=== PATIENT | female | born 1990 | race Caucasian/White ===

== ENCOUNTER 2022-01-24 11:14 | Emergency (ER) | payer OTHER, SELFPAY ==
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
[2022-01-24 11:25] VITALS: BP 126/92; PULSE 84; RESP 16; TEMP 36.6; O2SAT 98
[2022-01-24] MEDS: KETOROLAC (*BKC) 60 MG/2 ML VIAL IM (11:54)
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
[2022-01-24 12:24] VITALS: BP 118/78; PULSE 71; RESP 16; O2SAT 99
== END 2022-01-24 12:27 | disposition home or self-care (01) ==
PROVIDERS: Emergency Provider Emergency Medicine
DX: S13.4XXA Sprain of ligaments of cervical spine, initial encounter (principal); V43.52XA Car driver injured in collision with other type car in traffic accident, initial encounter
CPT/HCPCS: 70450; 72125; 96372; 99284; J1885; L0150

== ENCOUNTER 2024-06-09 11:20 | Emergency (ER) | payer OTHER, SELFPAY ==
[2024-06-09 11:20] VITALS: BP 150/110; PULSE 80; RESP 16; TEMP 36.5; O2SAT 100
--- NOTE | 2024-06-09 11:31 | ED.HA ---
HPI - Headache General Chief Complaint: Headache Stated Complaint: migraine Time Seen by Provider: 06/09/24 11:26 Source: patient Mode of arrival: ambulatory Limitations: no limitations History of Present Illness HPI Narrative: 34-year-old female with a history of migraines presents to the ED with a 2 day history of -- upper neck pain radiating forwards to the frontal region of the head along with left retro-orbital pain. The pain was initially intermittent but now it is persistent. Patient had some nausea and vomiting. Patient has photophobia. The headache started gradually. This is similar to her usual migraine headache. No fever. The patient did not experience any aura. No recent trauma. Patient is not on any control pills nor is she . MD elicited complaint: headache and migraine Onset (ago): day(s) ( Two days) Onset description: gradually Location: left, frontal and occipital Severity: moderate Quality & Timing: aching and throbbing Exacerbating factors: none Relieving factors: nothing Context: occurred at rest Associated symptoms: nausea, vomiting and photophobia Treatments prior to arrival: none Related Data Home Medications Medication Instructions Recorded Confirmed cyclobenzaprine 10 mg tablet 10 mg PO TID PRN Muscle Spasm 06/09/24 06/09/24 Allergies Allergy/AdvReac Type Severity Reaction Status Date / Time No Known Allergies Allergy Verified 06/09/24 11:35 Review of Systems Review of Systems: All systems reviewed & are unremarkable except as noted in HPI and below Constitutional: Constitutional: Reports as per HPI and Reports no additional constitutional complaints Eyes: Eyes: Reports as per HPI and Reports no additional eye complaints ENT: Reports system reviewed and no additional complaints, except as documented and Reports as per HPI Cardiovascular: Cardiovascular: Reports as per HPI and Reports no additional cardiovascular complaints Respiratory: Respiratory: Reports as per HPI and Reports no additional respiratory complaints Gastrointestinal: Gastrointestinal: Reports as per HPI and Reports no additional gastrointestinal complaints Genitourinary: Genitourinary: Reports no additional female genitourinary complaints and Reports as per HPI Musculoskeletal: Musculoskeletal: Reports no additional musculoskeletal complaints and Reports as per HPI Integumentary/Breasts: Skin/Breast: Reports system reviewed and no additional complaints, except as docu and Reports as per HPI Neurologic: Reports system reviewed and no additional complaints, except as documented, Reports as per HPI and Reports headache(s) Psychiatric: Psychiatric: Reports no additional psychiatric complaints and Reports as per HPI Endocrine: Endocrine: Reports no additional endocrine complaints and Reports as per HPI Hematologic/Lymphatic: Hematologic/Lymphatic: Reports no additional hematologic/lymphatic complaints and Reports as per HPI Allergic/Immunologic: Allergic/Immunologic: Reports no additional allergic/immunologic complaints and Reports as per HPI PMFSH Past Medical History Medical History Migraine Patient denies medical problems Family History Family History Mother Hypertension Cerebrovascular accident Family history of diabetes mellitus in first degree relative Father Cerebrovascular accident, Onset Age: 46 Social History Social History Smoking status: Never smoker Alcohol intake: never Exam Narrative: pressure is 150/110. Const: General: no acute distress Orientation/consciousness: patient oriented x3 Limitations: no limitations HENMT: Head: normal to inspection Ears: external ears normal Face/Nose/Sinus: Normal external nose present Face and sinus: normal facial exam Mouth: Yes Normal oral and pal
[2024-06-09] MEDS: ONDANSETRON HCL ODT 4 MG TABLET PO (11:40)
[2024-06-09] MEDS: KETOROLAC 30 MG/ML VIAL (*BKC) IM (11:41)
[2024-06-09 11:54] VITALS: BP 142/118
--- NOTE | 2024-06-09 12:13 | PC.NURSE ---
PT REPORTS NAUSEA HAS IMPROVED, PAIN IS ABOUT THE SAME, HOWEVER SHE WOULD LIKE TO GO HOME TO REST. STEADY GAIT IS NOTED.
== END 2024-06-09 12:12 | disposition home or self-care (01) ==
PROVIDERS: Emergency Provider Internal Medicine Critical Care Medicine
DX: G43.909 Migraine, unspecified, not intractable, without status migrainosus (principal); Z79.899 Other long term (current) drug therapy
CPT/HCPCS: 96372; 99283; A9270; J1885

== ENCOUNTER 2024-08-09 08:03 | Emergency (ER) | payer OTHER, SELFPAY ==
[2024-08-09 08:03] VITALS: BP 153/116; PULSE 80; RESP 18; TEMP 36.4; O2SAT 99
[2024-08-09 08:16] VITALS: BP 144/102; PULSE 78; O2SAT 98
--- NOTE | 2024-08-09 08:17 | ED_ITS ---
HPI - Headache General Chief Complaint: Headache Stated Complaint: migraine Time Seen by Provider: 08/09/24 08:17 Source: patient Mode of arrival: ambulatory History of Present Illness HPI Narrative: 34 years old white female came to the ED with migraine headache started last night, similar to her previous migraine, vomited once last night, currently complaining of throbbing headache mainly on the right side associated with nausea. She denies any fever, chills. Patient does not have regular medication for migraine headache. Related Data Home Medications Medication Instructions Recorded Confirmed cyclobenzaprine 10 mg tablet 10 mg PO TID PRN Muscle Spasm 06/09/24 08/09/24 Allergies Allergy/AdvReac Type Severity Reaction Status Date / Time No Known Allergies Allergy Verified 06/09/24 11:35 Review of Systems Review of Systems: All systems reviewed & are unremarkable except as noted in HPI and below PMFSH Past Medical History Medical History Migraine Patient denies medical problems Family History Family History Mother Hypertension Cerebrovascular accident Family history of diabetes mellitus in first degree relative Father Cerebrovascular accident, Onset Age: 46 Social History Social History Smoking status: Never smoker Alcohol intake: never Exam Narrative: General appearance: Well-developed, well-nourished Skin: Normal color Head: Normocephalic, nontraumatic Eyes: Clear conjunctiva ENT: Oropharynx normal, ears normal, nose normal Neck: Supple, nontender Chest and respiratory: Airway patent, no respiratory distress, no accessory muscle use Heart: Regular rate/rhythm Neurologic: Alert and oriented ?3, CONTROL SUPERVISOR is normal as tested, no gross motor deficit Course Vital Signs Vital signs: Vital Signs Temperature 36.4 C L 08/09/24 08:03 Pulse Rate 80 08/09/24 08:03 Respiratory Rate 18 08/09/24 08:03 Blood Pressure 153/116 H 08/09/24 08:03 Pulse Oximetry 99 08/09/24 08:03 Oxygen Delivery Room Air 08/09/24 08:03 Temperature 36.4 C L 08/09/24 08:03 Pulse Rate 78 08/09/24 08:16 Respiratory Rate 18 08/09/24 08:03 Blood Pressure 144/102 H 08/09/24 08:16 Pulse Oximetry 98 08/09/24 08:16 Oxygen Delivery Room Air 08/09/24 08:03 MDM - Headache MDM Narrative Medical decision making narrative: migraine headache versus tension headache Patient declined IV management, would like to have IM and p.o. medicine Differential Diagnosis Differential diagnosis: Likely migraine, tension headache and headache Critical Care Time Critical Care Time Critical Care Time: No Discharge Plan Discharge Clinical Impression: Headache Patient Disposition: Home, Self-Care Condition: Stable Instructions: Acute Headache (ED) Additional Instructions: Return if symptoms are worsening , call your family physician for appointment, take Tylenol as as needed for aches and pain, ibuprofen 600 every 6 hours as needed, continue home medications. Prescriptions: No Action cyclobenzaprine 10 mg Tablet 10 mg PO TID PRN (Reason: Muscle Spasm) Follow-up/Referrals: [facility] [Primary Care Provider] -
[2024-08-09 08:31] VITALS: BP 153/103; PULSE 74; O2SAT 98
--- NOTE | 2024-08-09 08:31 | PC.NURSE ---
Pt requests no IV started, no fluids, and to receive all ordered meds via IM injection. Dr. Figueroa notified.
[2024-08-09] MEDS: ONDANSETRON HCL ODT 4 MG TABLET PO (08:43)
[2024-08-09] MEDS: diphenhydrAMINE HCl CAP 25 MG CAPSULE 50 MG PO (08:44)
[2024-08-09] MEDS: METOCLOPRAMIDE HCL 10 MG TABLET PO (08:44)
[2024-08-09] MEDS: KETOROLAC (*BKC) 60 MG/2 ML VIAL IM (08:45)
[2024-08-09 09:00] VITALS: O2SAT 98
== END 2024-08-09 09:21 | disposition home or self-care (01) ==
PROVIDERS: Emergency Provider Emergency Medicine
DX: R51.9 Headache, unspecified (principal)
CPT/HCPCS: 96372; 99283; A9270; J1885

== ENCOUNTER 2025-05-13 11:07 | Emergency (ER) | payer OTHER, SELFPAY ==
--- OUTSIDE RECORDS SUMMARY | 2024-09-29 05:15 | XMS_ITS ---
Author Organization [facility] [employer] [facility] Address [address] [facility] [address] [facility] [address] [place] [address] Care Team Providers Care Marine Electrician Apprentice Name Role Phone Monster Duff Unavailable [phone] Psychiatrist, [place] Unavailable Unavailable REASON FOR VISIT PATIENT R/S FIRST APPT NEEDS SEEN GRABIEL Social History Sex Assigned At : Social History Observation Description Sex Assigned At Female Encounters Encounter Location Date Provider Diagnosis [facility] [employer] [place] [address] [facility] [address] [facility] [address] [place] [address] 09/29/2024 Monster Duff Plan Of Treatment Next Appt Details Provider Name:Monster Duff , 05/20/2025 09:00:00 AM, [address], [facility] [address], [place], [address], Progress Notes * Radha CHURCHDOB:04/1990 (35 yo F)Acc No.[id number]:09/29/2024 Patient: Noelle winters Radha Saunders Provider: Peter DUFF MD :1990 A ge:34 Y S ex:Female Date:09/29/2024 Phone: Address:[address] [place], [place]-[address] Subjective: * Chief Complaints: * P ATIENT R/S FIRST APPT NEEDS SEEN GRABIEL * Active Problem List F33.0 Depression, major, r ecurrent, mild Modified On:05/03/2025W/U Status:confirmed F33.0 Major depressive dis order, recurrent, mild Modified On:05/03/2025W/U Status:confirmed * Electronic signature of Noam Duff MD on 05/13/2025 at 12:15 PM CDT Sign off status: Pending * Provider: Peter DUFF MD Date: 0 09/29/2024 Generated for Sakshi turner/Shobha/Barb on: 0 05/13/2025 12:15 PM CDT
[2025-05-13 11:10] VITALS: BP 132/98; PULSE 68; RESP 16; TEMP 36.6; O2SAT 100
--- NOTE | 2025-05-13 11:14 | ED_ITS ---
HPI - Headache General Chief Complaint: Headache Stated Complaint: migraine Time Seen by Provider: 05/13/25 11:11 Source: patient Mode of arrival: ambulatory Limitations: no limitations History of Present Illness HPI Narrative: 35-year-old otherwise healthy here with the complaints of migraine headache since 03/30 this morning. Patient states that she gets these headaches periodically. No history of fever or chills. She stated a shot of Toradol and Zofran usually is of a headache. MD elicited complaint: migraine Onset (ago): hour(s) (3) Onset description: gradually Location: frontal Severity: moderate Quality & Timing: aching Exacerbating factors: none Relieving factors: nothing Associated symptoms: none Related Data Home Medications ?Medication ?Instructions ?Recorded ?Confirmed ?Last Taken ?Type No Home Medications 05/13/25 05/13/25 U nknown History Allergies Allergy/AdvReac Type Severity Reaction Status Date / Time No Known Allergies Allergy Verified 05/13/25 11:11 Review of Systems Review of Systems: All systems reviewed & are unremarkable except as noted in HPI and below Constitutional: Constitutional: Reports no additional constitutional co mplaints Eyes: Eyes: Reports no additional eye complaints ENT: Reports system reviewed and no additional complaints, except as documented Cardiovascular: Cardiovascular: Reports no additional cardiovascular complaints Respiratory: Respiratory: Reports no additional respiratory complaints Gastrointestinal: Gastrointestinal: Reports no additional gastrointestinal complaints Genitourinary: Genitourinary: Reports no additional female genitourinary complaints Musculoskeletal: Musculoskeletal: Reports no additional musculoskeletal complaints Neurologic: Reports as per HPI PMFSH Past Medical History Medical History Migraine Patient denies medical problems Family History Family History Mother Hypertension Cerebrovascular accident Family history of diabetes mellitus in first degree relative Father Cerebrovascular accident, Onset Age: 46 Social History Social History Smoking status: Never smoker Alcohol intake: never Exam Narrative: GENERAL: Well-appearing, well-nourished, and in no acute distress. HEAD: Normocephalic, atraumatic. EYES: PERRLA and EOMI. ENT: Nares clear, no rhinorrhea or epistaxis. Mucous membranes moist. NECK: Supple. CHEST: Clear to auscultation. No respiratory distress. HEART: Regular rate and rhythm. No murmur heard. Normal peripheral pulses EXTREMITIES: Normal range of motion. No edema. SKIN: Warm, dry, no rash. NEURO: No focal deficits. Alert and oriented x3. PSYCH: Normal mood and affect. Course Vital Signs Vital signs: Vital Signs Temperature 36.6 C 05/13/25 11:10 Pulse Rate 68 05/13/25 11:10 Respiratory Rate 16 05/13/25 11:10 Blood Pressure 132/98 H 05/13/25 11:10 Pulse Oximetry 100 05/13/25 11:10 Oxygen Delivery Room Air 05/13/25 11:10 Temperature 36.6 C 05/13/25 11:10 Pulse Rate 68 05/13/25 11:10 Respiratory Rate 16 05/13/25 11:10 Blood Pressure 132/98 H 05/13/25 11:10 Pulse Oximetry 100 05/13/25 11:10 Oxygen Delivery Room Air 05/13/25 11:10 Discharge Plan Discharge Clinical Impression: Migraine Qualifiers: Migraine type: unspecified Status migrainosus presence: without status migrainosus Intractability: intractable Qualified Code(s): G43.919 - Migraine, unspecified, intractable, without status migrainosus Patient Disposition: Home Condition: Stable Instructions: Migraine Headache (ED) Patient Language: Kosovan Prescriptions: No Action No Home Medications Follow-up/Referrals: UNKNOWN,DOCTOR [Non-Staff] Stand Alone Forms: Work/School Release IP Time of Disposition: 11:46
[2025-05-13] MEDS: KETOROLAC 30 MG/ML VIAL (*BKC) IM (11:26)
[2025-05-13] MEDS: ONDANSETRON HCL ODT 4 MG TABLET PO (11:27)
--- OUTSIDE RECORDS SUMMARY | 2025-05-13 12:15 | XMS_ITS | Clinical Summary ---
Author Organization [facility] Address [address] [place] [address] Care Team Providers Care Apparel Stock Checker Name Role Phone Unavailable Primary Care Provider Unavailabl e Social History Tobacco Use Types Packs/Day Years Used Date Smoking Tobacco: Never Assessed Comments Unknown Sex and Gender Information Value Date Recorded Sex Assigned at Not on file Legal Sex Female 6:24 PM CDT Gender Identity Not on file Sexual Orientation Not on file Plan of Treatment Health Maintenance Due Date Last Done Comments Cervical Cancer Screening Pa p Smear (Age 30 to 64) Every 3 Years 1992 Annual Physical 1995 Hepatitis C 2010 DTaP, Tdap and Td Vaccines ( 1 - Tdap) 2011 Hepatitis B Vaccines (1 of 3 - 19+ 3-dose series) 2011 HPV Vaccines (1 - 3-dose SCD M series) 2019 Cervical Cancer Screening Pa p with HPV Testing (Age 30 to 64) Every 5 Years 2022 Cervical Cancer Screening with HPV 2022 COVID-19 Vaccine (1 - 2023-2 5 season) 2025 Meningococcal B Vaccine Aged Out No l onger eligible based on patient's age to complete this topic Meningococcal Vaccine Aged Out No anaya juan eligible based on patient's age to complete this topic Pneumococcal Vaccine: Pediat rics (0 to 5 Years) and At-Risk Patients (6 to 49 Years) Aged Out No longer eligible b ased on patient's age to complete this topic RSV Immunizations Under 20 Months Aged Out No longer eligible based on patient's age to complete this topic
--- OUTSIDE RECORDS SUMMARY | 2025-05-13 12:15 | XMS_ITS | Patient Health Record ---
Author Organization [facility] [employer] [facility] Address [address] [place] [address] Care Team Providers Care Hand Frame Surgical Elastic Knitter Name Role Phone Monster Snow Unavailable [phone] Psychiatrist, [place] Unavailable Unavailable Reason For Referral Reason Med Management Diagnosis 1 Major depressive dis order, recurrent, mild (F33.0) Referred Organization [facility] [email or web address] [facility] Referred Provider Monster Snow Referred Address [address] ,[facility] [address], [place],[address] Referred Provider Specialty Psychiatry Referral Priority Routine Social History Sex Assigned At : Social History Observation Description Sex Assigned At Female Problems Problem Type SNOMED Code ICD Code Onset Dates Problem Status W/U Status Risk Notes Problem Mild recurrent major depression (47344612) Major depressive disorder, recurrent, mild (F33.0) Active confirmed Problem Mild recurrent major depression (95525526) Depression, major, recurrent, mild (F33.0) Active confirmed Encounters Encounter Location Date Provider Diagnosis [facility] [email or web address] [facility] [address] [place] [address] 09/02/2024 [facility] [email or web address] [facility] [address] [place] [address] 03/28/2025 [facility] [email or web address] [facility] [address] [place] [address] 09/09/2024 [employer] [facility] [email or web address] [facility] [address] [place] [address] 11/22/2024 [employer] [facility] [email or web address] [facility] [address] [place] [address] 11/24/2024 [facility] [employer] [facility] [address] [place] [address] 12/24/2024 Monster Driscollam [facility], [facility] [address] [place] [address] 12/24/2024 Monster Snow Plan Of Treatment Next Appt Details Provider Name:Monster Snow , 05/20/2025 09:00:00 AM, [address], [place], [address], Insurance Providers Payer Name Payer Address Payer Phone Subscriber Number Group Number Insured Name Patient Relationship to Insured Coverage Start Date Coverage End Date [facility] [address] [place] [phone] [id number] Radha Church Self - patient is the insured
== END 2025-05-13 12:03 | disposition home or self-care (01) ==
PROVIDERS: Emergency Provider Family Medicine
DX: G43.919 Migraine, unspecified, intractable, without status migrainosus (principal)
CPT/HCPCS: 96372; 99283; A9270; J1885

== ENCOUNTER 2025-07-21 10:23 | Outpatient (CLI) | payer OTHER, SELFPAY ==
--- OUTSIDE RECORDS SUMMARY | 2024-09-29 04:15 | XMS_ITS ---
Author Organization [facility] [employer] [facility] Address [facility] [facility] [address] [place] [address] Care Team Providers Care Pallet Stone Inserter Name Role Phone Monster Duff Unavailable [phone] Psychiatrist, [place] Unavailable Unavailable REASON FOR VISIT PATIENT R/S FIRST APPT NEEDS SEEN GRABIEL Social History Sex Assigned At : Social History Observation Description Sex Assigned At Female Encounters Encounter Location Date Provider Diagnosis [facility] [employer] [place] [id number] [facility] [address] [place] [address] 09/29/2024 Monster Duff Plan Of Treatment Next Appt Details Provider Name:Monster Duff , 08/01/2025 10:30:00 AM, [address], [facility] [address], [place], [address], Progress Notes * Radha CHURCHDOB:04/1990 (35 yo F)Acc No.[id number]:09/29/2024 Patient: Noelle winters Radha Saunders Provider: Peter DUFF MD :1990 A ge:34 Y S ex:Female Date:09/29/2024 Phone: Address:[address] [facility] Subjective: * Chief Complaints: * P ATIENT R/S FIRST APPT NEEDS SEEN GRABIEL * Active Problem List F33.0 Depression, major, r ecurrent, mild Modified On:05/03/2025W/U Status:confirmed F33.0 Major depressive dis order, recurrent, mild Modified On:05/03/2025W/U Status:confirmed F33.2 Major depressive dis order, recurrent severe without psychotic features Modified On:07/11/2025 Status:confirmed F41.1 Generalized anxiety disorder Modified On:07/11/2025 Status:confirmed F43.10 Post-traumatic stres s disorder, unspecified Modified On:07/11/2025 Status:confirmed F10.20 Alcohol dependence, uncomplicated Modified On:07/11/2025 Status:confirmed F41.0 Panic disorder [epis odic paroxysmal anxiety] Modified On:07/11/2025 Status:confirmed G43.909 Migraine, unspecifie d, not intractable, without status migrainosus Modified On:07/11/2025 Status:confirmed I10 Essential (primary) hypertension Modified On:07/11/2025 Status:confirmed * Electronic signature of Noam Duff MD on 07/21/2025 at 12:33 PM [employer] Sign off status: Pending * Provider: Peter DUFF MD Date: 0 09/29/2024 Generated for Sakshi turner/Shobha/eTransmitting on: 09/20/2024 12:33 PM [employer]
--- OUTSIDE RECORDS SUMMARY | 2025-05-20 03:00 | XMS_ITS ---
Author Organization [facility] [employer] [facility] Address [facility] [facility] [address] [place] [address] Care Team Providers Care Agriculture Laboratory Technician Name Role Phone GwendolynKenneth johnsonjay Unavailable [phone] Psychiatrist, [place] Unavailable Unavailable REASON FOR VISIT New Patient Social History Sex Assigned At : Social History Observation Description Sex Assigned At Female Encounters Encounter Location Date Provider Diagnosis [facility] [employer] [place] [address] [facility] [address] [place] [address] 05/20/2025 Monster Duff Plan Of Treatment Next Appt Details Provider Name:Monster Duff , 08/01/2025 10:30:00 AM, [address], [facility] [address], [place], [address], Progress Notes * Radha CHURCHDOB:04/1990 (35 yo F)Acc No.[id number]:05/20/2025 Patient: Noelle wintersRadha Provider: Peter DUFF MD :1990 A ge:35 Y S ex:Female Date:05/20/2025 Phone: Address:[address] [facility] Subjective: * Chief Complaints: * N ew Patient * Active Problem List F33.0 Depression, major, r ecurrent, mild Modified On:05/03/2025W/U Status:confirmed F33.0 Major depressive dis order, recurrent, mild Modified On:05/03/2025W/U Status:confirmed F33.2 Major depressive dis order, recurrent severe without psychotic features Modified On:07/11/2025W/U Status:confirmed F41.1 Generalized anxiety disorder Modified On:07/11/2025 Status:confirmed F43.10 Post-traumatic stres s disorder, unspecified Modified On:07/11/2025 Status:confirmed F10.20 Alcohol dependence, uncomplicated Modified On:07/11/2025 Status:confirmed F41.0 Panic disorder [epis odic paroxysmal anxiety] Modified On:07/11/2025 Status:confirmed G43.909 Migraine, unspecifie d, not intractable, without status migrainosus Modified On:07/11/2025 Status:confirmed I10 Essential (primary) hypertension Modified On:07/11/2025 Status:confirmed Billing Information: * Procedure Codes: * Electronic signature of Noam Duff MD on 07/21/2025 at 12:34 PM MANGLE TENDER CLOTH Sign off status: Pending * Provider: Peter DUFF MD Date: 0 05/20/2025 Generated for Sakshi turner/Shobha/Felicityitting on: 09/20/2024 12:34 PM MANGLE TENDER CLOTH
[2025-07-21 10:32] LABS: Hematocrit 41.9 % (35.0-49.0); Hemoglobin 13.8 g/dL (12.0-15.0); Immature Granulocyte Percent A 0.3 % (0.0-0.0); Lymphocytes Absolute Auto 1.84 K/mm3 (1.10-4.50); Mean Corpuscular HGB Conc 32.9 g/dL (32-36); Mean Corpuscular Hemoglobin 30.2 pg (27.0-31.0); Mean Corpuscular Volume 91.7 fL (78.0-102.0); Nucleated Red Blood Cells Absolute Auto 0.00 K/mm3 (0.00-0.00); Nucleated Red Blood Cells Perc 0.0 % (0-0.0); Platelet Count Result 270 K/mm3 (150-420); Red Blood Count 4.57 M/mm3 (4.20-5.40); White Blood Count 7.5 K/mm3 (4.8-10.8)
[2025-07-21 11:02] LABS: Alanine Aminotransferase 33 U/L (6-35); Albumin Level 4.5 g/dL (3.5-5.1); Alkaline Phosphatase 78 U/L (38-126); Anion Gap 9 mmol/L (4-12); Aspartate Amino Transferase 37 U/L (14-36); Bilirubin,Total 0.2 mg/dL (0.2-1.3); Blood Urea Nitrogen 15 mg/dL (7-17); Calcium 9.2 mg/dL (8.4-10.2); Carbon Dioxide 29 mmol/L (22-30); Chloride 103 mmol/L (98-107); Cholesterol 189 mg/dL (0-200); Estimated Glomerular Filt Rate > 60; Glucose 97 mg/dL (65-110); HDL Direct 102 mg/dL; Osmolality Calculated 292 mOsm/kg (285-295); Potassium 4.1 mmol/L (3.4-5.0); Sodium 141 mmol/L (137-145); Total Protein 7.0 g/dL (6.3-8.2); Triglycerides 85 mg/dL (<150)
[2025-07-21 11:32] LABS: Thyroid Stimulating Hormone Reflex 2.450 uIU/mL (0.465-4.68)
[2025-07-21 12:09] LABS: Vitamin B12 367.0 pg/mL (239-931)
--- OUTSIDE RECORDS SUMMARY | 2025-07-21 12:34 | XMS_ITS | Patient Health Record ---
Author Organization [employer] Address [address] [place] [address] Care Team Providers Care Printing Machine Mechanic Name Role Phone Monster Snow Unavailable [phone] Psychiatrist, [place] Unavailable Unavailable Allergies Allergen (clinical drug ingredient) Drug/Non Drug Allergy documented on EMR Reaction Allergy Type Onset Date Status Adhesive medical tap e (uncoded) rash Allergy Active Reason For Referral Reason Med Management Diagnosis 1 Major depressive dis order, recurrent, mild (F33.0) Referred Organization [facility] [employer] Referred Provider Monster Snow Referred Address [address],[place], [place],[address], Referred Provider Specialty Psychiatry Referral Priority Routine Medications Medication SIG (Take, Route, Frequency, Duration) Notes Start Date End Date Status lamoTRIgine 25 MG Tablet 1 tablet once a day for 15 days, 2 tablets once a day for 15 days Orally see sign; Duration: 30 days 07/11/2025 Active Sertraline HCl 50 MG Tablet 0.5 tablet o nce a day for 8 days, 1 tablet once a day for 82 days Orally see sign; Duration: 90 days 07/11/2025 Active hydrOXYzine HCl 10 MG Tablet 1 tablet as needed Orally Once a day; Duration: 30 days As needed 07/11/2025 Active Social History Tobacco Use: Social History Observation Description Date Details (start date - stop date) Current Smoker NA - NA Sex Assigned At : Social History Observation Description Sex Assigned At Female Social History Miscellaneous: Social Info Question Answer Notes Safety issues: Are there any firearms in the house? No Social History Social Info Question Answer Notes Household: Marital Status: Number of Adults in household: 1 Number of Children in Household: 0 Level of Education: Finished College Drug/Alcohol: Social Info Question Answer Notes Drugs Have you used drugs other than those for medical reasons in the past 12 months? Yes Methamphetamine? No Crack? No LSD? No Ecstacy? No Prescription opiates? No Marijuana? Yes Ketamine? No PCP? No Is there a minor (18 years or younger) at risk at home? No Are you still using? Yes Do you want treatment? Yes AUDIT-C (Standard) Points 8 Interpretation Positive Did you have a drink contain ing alcohol in the past year? Yes How often did you have six or more drinks on one occasion in the past year? 2 to 4 times a month (2 points) How many drinks did you have on a typical day when you were drinking in the past year? 5 or 6 drinks (2 points) How often did you have a drink containing alcohol in the past year? 2 to 3 times a week (3 points) Caffeine Intake: 1-2 cups per day Tobacco Use: Social Info Question Answer Notes Tobacco Control (Standard) Tobacco use: Current smoker How often do you smoke cigarettes? Some days, but not every day How many cigarettes a day do you smoke? 5 or less How soon after you wake up do you smoke your first cigarette? After 60 minutes Are you interested in quitting? 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 service: [place], from [place] August 2020 Living situation: Single, Drug use: Uses marijuana edibles for migraines and panic attacks, has medical marijuana card Alcohol use: Drinks several times a week, 5 shots and a couple beers when going out, last drank Friday or Problems Problem Type SNOMED Code ICD Code Onset Dates Problem Status W/U Status Risk Notes Problem Alcohol dependence (84474764) Alcohol dependence, uncomplicated (F10.20) Active confirmed Problem Mild recurrent major depression (94395055) Major depressive disorder, recurrent, mild (F33.0) Active confirmed Problem Severe recurrent major depression without psychotic features (06038177) Major depressive disorder, recurrent severe without psychotic features (F33.2) Active confirmed Problem Generalized anxiety disorder (04333556) Generalized anxiety disorder (F41.1) Active confirmed Problem Post-traumatic stress disorder (83058454) Post-traumatic stress disorder, unspecified (F43.10) Active confirmed Problem Migraine without aura, not refractory (disorder) (602322752) Migraine, unspecified, not intractable, without status migrainosus (G43.909) Active confirmed Problem Essential hypertension (62111451) Essential (primary) hypertension (I10) Active confirmed Problem Panic disorder (381787358) Panic disorder [episodic paroxysmal anxiety] (F41.0) Active confirmed Problem Mild recurrent major depression (33051048) Depression, major, recurrent, mild (F33.0) Active confirmed Vital Signs Heart Rate 88 /min 07/11/2025 Height-cm 162.56 cm 07/11/2025 Blood pressure diastolic 98 mm Hg 07/11/2025 Weight-kg 67.59 kg 07/11/2025 Height 64 in 07/11/2025 Blood pressure systolic 149 mm Hg 07/11/2025 Weight 149 lbs 07/11/2025 BMI 25.57 kg/m2 07/11/2025 Encounters Encounter Location Date Provider Diagnosis [facility] [employer] [address] [address] 07/11/2025 Monster Driscollam Major depressive disorder, recurrent severe without psychotic features F33.2 ; Generalized anxiety disorder F41.1 ; Post-traumatic stress disorder, unspecified F43.10 ; Alcohol dependence, uncomplicated F10.20 ; Panic disorder [episodic paroxysmal anxiety] F41.0 ; Cannabis use, unspecified, uncomplicated F12.90 ; Migraine, unspecified, not intractable, without status migrainosus G43.909 ; Essential (primary) hypertension I10 and Unemployment, unspecified Z56.0 [facility] [employer] [place] [address] [facility] [address] [place] [address] 09/02/2024 [facility] [place] [address] [facility] [address] [place] [address] 03/28/2025 [facility] [place] [address] [facility] [address] [place] [address] 05/20/2025 [facility] [place] [address] [facility] [address] [place] [address] 09/09/2024 [facility], [facility] [address] [place] [address] 11/22/2024 [facility], [facility] [address] [place] [address] 11/24/2024 [facility], [facility] [address] [facility] [address] [place] [address] 12/24/2024 [facility] [address] [facility] [address] [place] [address] 12/24/2024 [facility], [facility] [address] [facility] [address] [place] [address] 06/18/2025 [facility], [facility] [address] [facility] [address] [place] [address] 07/04/2025 [facility], [place] [address] [address] 07/04/2025 [facility], [place] [address] [facility] [address] [place] [address] 07/04/2025 Monster Gwendolyn Assessments Encounter Date Diagnosis (ICD Code) Assessment Notes Treatment Notes Treatment Clinical Notes Section Notes 07/11/2025 Major depressive disorder, recurrent severe without psychotic features (ICD-10 - F33.2) Symptoms include severe depression, mood swings, emotional dysregulation, irritability, anger outbursts, excessive crying, hopelessness, difficulty getting out of bed, lack of self-care, inability to hold a job, and relationship difficulties. Depression has intensified since witnessing mother's accident and . Patient stopped prior medications in March 2022 due to concerns about dependency and sensitivity to side effects. Strong family history of bipolar disorder, depression, and anxiety. - Ordered sertraline 25 mg, half tablet once daily for one week, then increase as tolerated. - Ordered lamotrigine 25 mg, one tablet once daily for two weeks, then increase to 50 mg, two tablets once daily after that. - Send prescriptions to [place] pharmacy. - Follow up in 2-3 weeks for medication adjustment. 07/11/2025 Generalized anxiety disorder (ICD-10 - F41.1) 07/11/2025 Post-traumatic stress disorder, unspecified (ICD-10 - F43.10) Patient reports nightmares, flashbacks, and emotional distress related to witnessing mother's accident and . Symptoms contribute to ongoing emotional instability and difficulty coping. - [facility] 07/11/2025 Alcohol dependence, uncomplicated (ICD-10 - F10.20) Patient reports excessive drinking, alcohol dependence, drinking to cope with anxiety and panic attacks, and hangovers. Alcohol use has led to gambling and bankruptcy. Patient finds it challenging to abstain but has not drunk since Friday or . - Lamotrigine prescribed to help decrease cravings for alcohol. 07/11/2025 Panic disorder [episodic paroxysmal anxiety] (ICD-10 - F41.0) Patient experiences frequent panic attacks and anxiety episodes, sometimes resulting in emotional freezing and avoidance. Previously used Klonopin as needed for panic attacks. Considering hydroxyzine for future management. - Ordered hydroxyzine 10 mg, half tablet once daily as needed for panic attacks. - Increase hydroxyzine to one tablet once daily as needed after initial period. 07/11/2025 Cannabis use, unspecified, uncomplicated (ICD-10 - F12.90) Patient uses marijuana edibles for migraines and panic attacks. Has a medical marijuana card for migraines. Willing to quit marijuana if needed for medication management. - Discussed need to discontinue marijuana if considering benzodiazepine therapy for panic attacks. 07/11/2025 Migraine, unspecified, not intractable, without status migrainosus (ICD-10 - G43.909) Patient experiences migraines and uses marijuana for relief. 07/11/2025 Essential (primary) hypertension (ICD-10 - I10) Patient reports high blood pressure readings for 6 months. Primary care appointment scheduled for evaluation. 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 07/11/2025 Other Learning About Depression Screening material was printed Plan Of Treatment Next Appt Details Provider Name:Monster K Gwendolyn , 08/01/2025 10:30:00 AM, [address] [facility] [address], [place], [address], Insurance Providers Payer Name Payer Address Payer Phone Subscriber Number Group Number Insured Name Patient Relationship to Insured Coverage Start Date Coverage End Date [facility] [address] [place] [phone] [id number] Radha Church Self - patient is the insured Medical (General) History Medical History History ICD Code Past Psychiatric History: An xiety Disorder,Panic Disorder,Major Depressive Episode abdominal aortic aneurysm: No atrial fibrillation: No chronic fatigue syndrome: No hyperlipidemia: No hypertension: No Parkinson's disease: No restless leg syndrome: No stroke: No subdural hematoma: No type 1 diabetes mellitus: No type 2 diabetes mellitus: No vitamin B12 deficiency: Yes vitamin D deficiency: Yes essential tremor: No Major depressive disorder, diagnosed 201 9 Panic disorder Post-traumatic stress disorder Migraine Possible hypertension, high blood pressu re readings for 6 months Alcohol use disorder Cannabis use, medical marijuana card for migraines Surgical History Surgery Date(Month/Year) Breast Augmentation 2018
[2025-07-21 14:59] LABS: CRP < 0.5 mg/dL (<1.0)
[2025-07-22 13:09] LABS: ANA by IFA Rfx Titer/Pattern Negative (.)
== END 2025-07-21 10:24 | disposition home or self-care (01) ==
PROVIDERS: PCP Family Medicine; Visit Provider Family Medicine
DX: I10 Essential (primary) hypertension (principal); Z82.3 Family history of stroke; E03.9 Hypothyroidism, unspecified; E53.8 Deficiency of other specified B group vitamins
CPT/HCPCS: 36415; 80053; 80061; 82607; 82746; 84443; 85025; 86038; 86140